=== PATIENT | male | born 1985 | race Caucasian/White ===

== ENCOUNTER → 2023-07-22 08:01 | Outpatient (CLI) | payer BC, SELFPAY ==
[2023-07-22 13:51] LABS: Hematocrit 39.9 % (41-53); Hemoglobin 14.2 g/dL (13.5-17.5); Mean Corpuscular HGB Conc 35.6 % (30-36); Mean Corpuscular Hemoglobin 31.8 PG (26-34); Mean Corpuscular Volume 89.2 fL (80-100); Platelet Count 289 X10^3/uL (150-400); Red Blood Cell Count 4.48 X10^6/uL (4.5-5.9); Red Cell Distribution Width 12.6 % (11.6-14.8); White Blood Cell Count 6.3 X10^3/uL (4.5-11.0)
[2023-07-22 14:08] LABS: Alanine Aminotransferase 17 IU/L (<50); Albumin 4.9 g/dL (3.5-5.0); Albumin Globulin Ratio 1.5 (1.0-2.8); Alkaline Phosphatase 47 U/L (38-126); Aspartate Aminotransferase 23 IU/L (17-59); BUN Creatinine Ratio 13.6 (6-22); Bilirubin Total 2.2 mg/dL (0.2-1.3); Blood Urea Nitrogen 12 mg/dL (9-20); Calcium 9.6 mg/dL (8.4-10.2); Carbon Dioxide 30 mmol/L (22-32); Chloride 104 mmol/L (98-107); Cholesterol 177 mg/dL (140-199); Estimated Glomerular Filt Rate > 60 mL/min (>60); Globulin 3.2 g/dL (1.7-4.1); Glucose 98 mg/dL (70-100); HDL Cholesterol 66 mg/dL (40-60); HEMOLYSIS < 15 (0-50); LDL Cholesterol Calculated 98 mg/dL (<100); Potassium 4.8 mmol/L (3.4-5.1); Sodium 140 mmol/L (137-145); Total Protein 8.1 g/dL (6.3-8.2); Triglycerides 67 mg/dL (35-150)
[2023-07-22 14:34] LABS: TSH w/ Reflex to FT4 0.78 uIU/mL (0.47-4.68)
[2023-07-22 18:28] LABS: Neutrophils Absolute Manual 3969 /uL (3000-5900); Total Cells Counted 100
[2023-07-22 18:29] LABS: RBC Morphology Normal Morphology
[2023-07-27 07:22] LABS: Fecal Immunochemical Test Negative (Negative)
== END ==
PROVIDERS: PCP Family Medicine; Referring Provider Family Medicine; Visit Provider Family Medicine
DX: Z00.00 Encounter for general adult medical examination without abnormal findings (principal); R63.4 Abnormal weight loss
CPT/HCPCS: 36415; 80053; 80061; 82274; 84443; 85025